=== PATIENT | female | born 1980 | race Caucasian/White ===

== ENCOUNTER 2017-12-01 07:03 | Outpatient (CLI) | END 2017-12-01 09:10 | disposition home or self-care (01) ==

== ENCOUNTER 2018-01-21 13:04 | Inpatient (IN) | END 2018-01-24 13:35 | disposition home or self-care (01) | DRG 766 ==

== ENCOUNTER 2019-03-15 08:33 | Emergency (ER) | payer MEDICAID ==
[~2019-03-15] VITALS: Ht 157.5 cm; Wt 75.0 kg
[~2019-03-15 08:33] MED LIST: IBUP-1544 PO; PREN-93 PO
[2019-03-15 08:37] VITALS: Ht 157.5 cm; Wt 75.0 kg
[2019-03-15] MEDS ORDERED: SOD CHLORIDE 0.9% 1,000 ML IV STA ×2 (08:55→10:22)
[2019-03-15] MEDS ORDERED: ACETAMINOPHEN 500 MG TAB PO STA (08:55)
[2019-03-15] MEDS ORDERED: KETOROLAC 30 MG INJ IV STA (08:55)
[2019-03-15] MEDS ORDERED: CEFTRIAXONE 1 GM/50 ML (PMX) 50 ML IVPB STA (08:55)
--- NOTE | 2019-03-15 09:01 | ERD ---
ER Documentation Chief Complaint Chief Complaint FEVER WITH BODY ACHES, FRECUENT URINATION SINCE YESTERDAY HPI 38-year-old female who is otherwise healthy who presents to the emergency room with 24 hours of symptoms including fever and body aches. Patient describes dysuria urgency and frequency and is starting to have a early slight left-sided flank pain. She denies colicky pain but describes constant pain. It is mild to moderate currently. No recent travel, sick contacts. No nausea vomiting or diarrhea. No pain to the abdomen. No vaginal bleeding or discharge. ROS All systems reviewed and are negative except as per history of present illness. Medications Home Meds Active Scripts Ciprofloxacin Hcl* (Ciprofloxacin Hcl*) 500 Mg Tablet, 500 MG PO BID for 10 Days, TAB Prov:WILLIAM CLEMENTE MD 03/15/19 Ibuprofen* (Motrin*) 800 Mg Tab, 800 MG PO Q6H PRN for PAIN AND OR ELEVATED TEMP, #30 TAB Prov:WILLIAM CLEMENTE MD 03/15/19 Ibuprofen* (Ibuprofen*) 800 Mg Tablet, 800 MG PO Q8, #60 TAB 0 Refills Prov:ADAMS FERNANDEZ MD 01/23/18 Reported Medications Vit No.124/Iron/FA ( Vitamin Tablet) 1 Each Tablet, 1 EACH PO, TAB 12/01/17 Allergies Allergies: Coded Allergies: No Known Allergy (Unverified , 12/01/17) FmHx Family History: No diabetes Physical Exam Vitals Vital Signs Date Temp Pulse Resp B/P (MAP) Pulse Ox O2 O2 Flow FiO2 Time Delivery Rate 03/15/19 98.6 93 17 92/59 (70) 99 Room Air 11:01 03/15/19 100.6 97 20 93/58 (70) 99 Room Air 10:19 03/15/19 103.8 09:18 03/15/19 103.8 117 18 115/59 99 08:37 (77) Physical Exam General: Well developed, well nourished, no acute distress Head: Normocephalic, atraumatic. Eyes: Pupils equally reactive, EOM intact ENT: Moist mucous membranes Neck: Supple, no lymphadenopathy Respiratory: Lungs clear bilaterally, no distress Cardiovascular: Slight tachycardia, no murmurs, rubs, or gallops Abdominal: Soft, non-tender, non-distended, no peritoneal signs, no tenderness to McBurney's point, negative Condon sign Back: Mild left-sided CVAT : Deferred MSK: No edema, no unilateral swelling, 5/5 strength Neurologic: Alert and oriented, moving all extremities, normal speech, no focal weakness, no cerebellar signs Skin: No rash Psych: Normal mood Result Diagram: 03/15/1990403/15/19904 Results 24 hrs Laboratory Tests Test 03/15/19 09:05 03/15/19 09:16 White Blood Count 16.3 10^3/ul Red Blood Count 4.11 10^6/ul Hemoglobin 12.9 g/dl Hematocrit 37.7 % Mean Corpuscular Volume 91.7 fl Mean Corpuscular Hemoglobin 31.4 pg Mean Corpuscular Hemoglobin Concent 34.2 g/dl Red Cell Distribution Width 12.8 % Platelet Count 220 10^3/UL Mean Platelet Volume 10.3 fl Immature Granulocytes % 0.500 % Neutrophils % 84.9 % Lymphocytes % 5.6 % Monocytes % 8.8 % Eosinophils % 0.0 % Basophils % 0.2 % Nucleated Red Blood Cells % 0.0 /100WBC Immature Granulocytes # 0.080 10^3/ul Neutrophils # 13.8 10^3/ul Lymphocytes # 0.9 10^3/ul Monocytes # 1.4 10^3/ul Eosinophils # 0.0 10^3/ul Basophils # 0.0 10^3/ul Nucleated Red Blood Cells # 0.0 10^3/ul Urine Color YELLOW Urine Clarity CLOUDY Urine pH 5.0 Urine Specific Duncan 1.013 Urine Ketones 2+ mg/dL Urine Nitrite POSITIVE mg/dL Urine Bilirubin NEGATIVE mg/dL Urine Urobilinogen NEGATIVE mg/dL Urine Leukocyte Esterase 3+ Valeriy/ul Urine Microscopic RBC 20 /HPF Urine Microscopic WBC > 182 /HPF Urine Squamous Epithelial Cells FEW /HPF Urine Bacteria FEW /HPF Urine Mucus FEW /HPF Urine Hemoglobin 2+ mg/dL Urine Glucose NEGATIVE mg/dL Urine Total Protein 1+ mg/dl Sodium Level 139 mmol/L Potassium Level 3.3 mmol/L Chloride Level 106 mmol/L Carbon Dioxide Level 21 mmol/L Anion Gap 12 Blood Urea Nitrogen 11 mg/dl Creatinine 0.80 mg/dl Est Glomerular Filtrat Rate mL/min > 60 mL/min Glucose Level 104 mg/dl Calcium Level 8.5 mg/dl POC Beta HCG, Qualitative NEGATIVE Current Medications Medications Dose Sig/Melo Start Time Status Last (Trade) Ordered Route PRN Stop Time Admin Dose Reason Admin Sodium 1,000 ml @ Q1H STAT 03/15/19 DC 03/15/19 Chloride 1,000 mls/hr IV 08:55 09:18 03/15/19 09:54 Ketorolac 30 mg ONCE STAT 03/15/19 DC 03/15/19 Tromethamine IV 08:55 09:17 (Toradol) 03/15/19 08:57 Ceftriaxone 50 ml @ ONCE STAT 03/15/19 DC 03/15/19 Sodium 100 mls/hr IVPB 08:55 09:18 03/15/19 09:24 1,000 mg ONCE STAT 03/15/19 DC 03/15/19 Acetaminophen PO 08:55 09:18 (Tylenol 03/15/19 08:57 Tab) Sodium 1,000 ml @ Q1H STAT 03/15/19 DC 03/15/19 Chloride 1,000 mls/hr IV 10:22 10:44 03/15/19 11:21 Procedures/MDM LAB INTERPRETATION: I reviewed the laboratory testing and it shows urinary tract infection with elevated white blood cell count MEDICAL DECISION MAKING: The patient's clinical exam and history is very consistent with early pyelonephritis. The patient does not exhibit any signs or symptoms concerning for ureterolithiasis. No indication for CT imaging of the abdomen pelvis at this time. Abdomen exam is benign without concern for acute appendicitis or alternative process. The patient does have fever and tachycardia I am not convinced this is consistent with sepsis. A code sepsis was not initiated. Patient will benefit from fluids, antipyretics and antibiotics. Outpatient therapy is likely appropriate given how well-appearing the patient is without other comorbidities. ER COURSE: * The patient has clinical signs and symptoms that are very consistent with pyelonephritis. The patient is extremely well-appearing * Patient was treated with antipyretics and IV fluids. Blood pressure was somewhat borderline the patient is a more petite woman. Patient continues to be well-appearing and states significant subjective improvement. Consider possible mild dehydration secondary to insensible losses. Again very low clinical concern for sepsis. Patient was given IV fluids. Patient is able to ambulate stand up without lightheadedness or dizziness. * I believe the patient is safe for discharge. CONSULTATION: None DISPOSITION PLAN: The patient does not have an identifiable emergent medical condition that warrants inpatient hospitalization at this time. The patient is deemed safe for discharge with outpatient follow-up. We discussed follow up with the patient's primary care doctor within 24 to 48 hours as needed. We also discussed return to the emergency room for worsening symptoms or worsening condition. Outpatient referral: None required Discharge Medications: Ciprofloxacin, Motrin Departure Diagnosis: Primary Impression: Acute pyelonephritis Additional Impression: Dehydration, moderate Condition: Stable WILLIAM CLEMENTE MD Mar 15, 2019 09:01
[2019-03-15] MEDS ORDERED: IBUP800T48 PO (10:05)
[2019-03-15] MEDS ORDERED: CIPR500T4 PO (10:05)
[2019-03-15 11:53] VITALS: BP 91/65; PULSE 82; RESP 20
== END 2019-03-15 12:20 | disposition home or self-care (01) ==
LOC: E/R 08:33
DX: N10 Acute pyelonephritis (principal); E86.0 Dehydration
CPT/HCPCS: 36415; 80048; 81001; 81025; 85025; 96374; 96375; J0696; J1885; J7030; Z7502; Z7610